=== PATIENT | female | born 1990 | race Caucasian/White ===

== ENCOUNTER 2017-02-21 13:05 | Inpatient (IN) | payer SELFPAY ==
[~2017-02-21] VITALS: Ht 165.1 cm; Wt 80.2 kg
[~2017-02-21 13:05] MED LIST: ALBU8.5H3 IH; AMOX1TAB61 PO; CARB200T4 PO; CETI10TA24 PO; CETI10TA32 PO; DEXT10TA7 PO; FLUT100B INH; GUAI600T22 PO; LEVO25TA4 PO; LEVO50TA5 PO; LORA10TA75 PO; NORE-40 PO; NORE-73 PO; OMEP-110 PO; PRAM0.752 PO; PRAM0.754 PO; PRAM1.5T5 PO; PRED10TA PO; TRAZ100T15 PO; VENL225T PO; VENL75CA6 PO; VENL75TA PO; VITA400C42 PO; epi-pen INJ
[2017-02-21] MEDS ORDERED: SODIUM CHLORIDE 0.9% 1,000ML IVBOLUS ONE ×2 (14:30→18:30)
[2017-02-21] MEDS ORDERED: ONDANSETRON 2MG/ML, 2ML IVPush ONE (14:30)
[2017-02-21] MEDS ORDERED: SODIUM CHLORIDE FLUSH 10ML SYR IVF ONE (14:30)
[2017-02-21] MEDS ORDERED: ONDANSETRON 2MG/ML, 2ML ONE (14:42)
[2017-02-21] MEDS ORDERED: methylPREDNISolone SOD SUCC 125 MG/2 ML ONE (14:42)
[2017-02-21 14:49] LABS: BLOOD UREA NITROGEN 12 mg/dL (7-18)
[2017-02-21 14:54] LABS: ASPARTATE AMINO TRANSFERASE 18 U/L (15-37)
[2017-02-21] MEDS ORDERED: methylPREDNISolone SOD SUCC 125 MG/2 ML IVPush ONE (15:00)
[2017-02-21] MEDS ORDERED: POLYETHYLENE GLYCOL 17 GM PACKET PO PRN (18:00)
[2017-02-21] MEDS ORDERED: BISACODYL 10 MG SUPP PR PRN ×2 (18:00→20:00)
[2017-02-21] MEDS ORDERED: DOCUSATE 100 MG CAPSULE PO PRN ×2 (18:00→19:30)
[2017-02-21] MEDS ORDERED: ONDANSETRON 2MG/ML, 2ML IVPush PRN (18:00)
[2017-02-21] MEDS ORDERED: PRAMIPEXOLE 0.25MG TABLET PO SCH (18:00)
[2017-02-21] MEDS ORDERED: PROMETHAZINE 25 MG/ML, 1ML IM PRN (18:00)
[2017-02-21 18:08] VITALS: BP 106/66
[2017-02-21] MEDS: SODIUM CHLORIDE 0.9% 1,000 ML IV SCH (18:31)
[2017-02-21 19:30] VITALS: BP 94/56
[2017-02-21] MEDS: CEFTRIAXONE PMX 1GM/50ML 50 ML IV SCH (20:51)
[2017-02-21] MEDS: CETIRIZINE 10 MG TABLET PO SCH (21:00)
[2017-02-21] MEDS: GUAIFENESIN ER 600 MG TABLET PO SCH (21:00)
[2017-02-21] MEDS: ENOXAPARIN 40 MG/0.4 ML SQ SCH (22:39)
[2017-02-21] MEDS: PRAMIPEXOLE 0.25MG TABLET PO SCH (22:40)
[2017-02-21] MEDS: VENLAFAXINE 75 MG CAP ER PO SCH (22:40)
[2017-02-21] MEDS: methylPREDNISolone SOD SUCC 125 MG/2 ML IVPush SCH (22:40)
[2017-02-21] MEDS: TRAZODONE 100MG TABLET PO SCH (22:40)
[2017-02-21] MEDS: CARBAMAZEPINE 200 MG TABLET PO SCH (22:40)
[2017-02-22 00:45] VITALS: BP 94/56
[2017-02-22] MEDS: ACETAMINOPHEN 325 MG TABLET PO PRN (01:13)
[2017-02-22] MEDS ORDERED: ALBUTEROL SULFATE 2.5 MG/3 ML NPPB PRN (04:00)
[2017-02-22] MEDS: methylPREDNISolone SOD SUCC 125 MG/2 ML IVPush SCH ×4 (04:11→21:37)
[2017-02-22] MEDS: SODIUM CHLORIDE 0.9% 1,000 ML IV SCH ×2 (05:36→11:48)
[2017-02-22 05:37] LABS: BLOOD UREA NITROGEN 14 mg/dL (7-18)
[2017-02-22 05:49] LABS: ASPARTATE AMINO TRANSFERASE 15 U/L (15-37)
[2017-02-22 06:46] VITALS: BP 90/52
[2017-02-22] MEDS: CARBAMAZEPINE 200 MG TABLET PO SCH ×3 (07:39→21:38)
[2017-02-22] MEDS: SENNA/DOCUSATE TABLET PO SCH (08:41)
[2017-02-22] MEDS: GUAIFENESIN ER 600 MG TABLET PO SCH ×3 (08:41→21:38)
[2017-02-22] MEDS: CETIRIZINE 10 MG TABLET PO SCH ×3 (08:42→21:38)
[2017-02-22] MEDS: FLUTICASONE FUROATE 100MCG/INH INH SCH (08:43)
[2017-02-22] MEDS: OMEPRAZOLE 20 MG CAPSULE.DR PO SCH (08:43)
[2017-02-22] MEDS: LEVOTHYROXINE 50 MCG TABLET PO SCH (08:43)
[2017-02-22 14:33] VITALS: BP 100/63
[2017-02-22] MEDS: PRAMIPEXOLE 0.25MG TABLET PO SCH (16:10)
[2017-02-22 19:10] VITALS: BP 108/66
[2017-02-22] MEDS ORDERED: PRAMIPEXOLE DI HCL 1.5 MG HOMEMEDPO SCH (21:00)
[2017-02-22] MEDS: CEFTRIAXONE PMX 1GM/50ML 50 ML IV SCH (21:36)
[2017-02-22] MEDS: TRAZODONE 100MG TABLET PO SCH (21:38)
[2017-02-22] MEDS: VENLAFAXINE 75 MG CAP ER PO SCH (21:38)
[2017-02-22] MEDS: PRAMIPEXOLE 0.5MG TABLET PO SCH (21:38)
[2017-02-22] MEDS: ENOXAPARIN 40 MG/0.4 ML SQ SCH (21:39)
[2017-02-23 01:00] VITALS: BP 99/59
[2017-02-23] MEDS: SODIUM CHLORIDE 0.9% 1,000 ML IV SCH ×2 (01:14→13:13)
[2017-02-23] MEDS: methylPREDNISolone SOD SUCC 125 MG/2 ML IVPush SCH ×2 (03:47→09:12)
[2017-02-23 05:44] LABS: BLOOD UREA NITROGEN 12 mg/dL (7-18)
[2017-02-23 07:15] VITALS: BP 112/67
[2017-02-23] MEDS: FLUTICASONE FUROATE 100MCG/INH INH SCH (09:00)
[2017-02-23] MEDS: CARBAMAZEPINE 200 MG TABLET PO SCH ×2 (09:12→21:23)
[2017-02-23] MEDS: OMEPRAZOLE 20 MG CAPSULE.DR PO SCH (09:12)
[2017-02-23] MEDS: CETIRIZINE 10 MG TABLET PO SCH ×2 (09:12→21:23)
[2017-02-23] MEDS: LEVOTHYROXINE 50 MCG TABLET PO SCH (09:12)
[2017-02-23] MEDS: GUAIFENESIN ER 600 MG TABLET PO SCH ×2 (09:12→21:23)
[2017-02-23] MEDS: SENNA/DOCUSATE TABLET PO SCH (09:17)
[2017-02-23] MEDS: POLYETHYLENE GLYCOL 17 GM PACKET PO PRN (09:17)
[2017-02-23 12:35] VITALS: BP 117/69
[2017-02-23] MEDS: DIPHENHYDRAMINE 25 MG CAPSULE PO PRN ×2 (17:48→22:36)
[2017-02-23] MEDS: ACETAMINOPHEN 325 MG TABLET PO PRN ×2 (17:48→22:36)
[2017-02-23 19:20] VITALS: BP 114/71
[2017-02-23] MEDS: CEFTRIAXONE PMX 1GM/50ML 50 ML IV SCH (21:22)
[2017-02-23] MEDS: VENLAFAXINE 75 MG CAP ER PO SCH (21:23)
[2017-02-23] MEDS: PRAMIPEXOLE 0.5MG TABLET PO SCH (21:23)
[2017-02-23] MEDS: ENOXAPARIN 40 MG/0.4 ML SQ SCH (22:00)
[2017-02-23] MEDS: TRAZODONE 100MG TABLET PO SCH (22:36)
[2017-02-24 01:00] VITALS: BP 111/71
[2017-02-24] MEDS: SODIUM CHLORIDE 0.9% 1,000 ML IV SCH (02:22)
[2017-02-24 07:34] VITALS: BP 121/79
[2017-02-24] MEDS: SENNA/DOCUSATE TABLET PO SCH (08:29)
[2017-02-24] MEDS: GUAIFENESIN ER 600 MG TABLET PO SCH (08:29)
[2017-02-24] MEDS: OMEPRAZOLE 20 MG CAPSULE.DR PO SCH (08:29)
[2017-02-24] MEDS: POLYETHYLENE GLYCOL 17 GM PACKET PO PRN (08:30)
[2017-02-24] MEDS: CARBAMAZEPINE 200 MG TABLET PO SCH (08:30)
[2017-02-24] MEDS: ACETAMINOPHEN 325 MG TABLET PO PRN (08:30)
[2017-02-24] MEDS: CETIRIZINE 10 MG TABLET PO SCH (08:30)
[2017-02-24] MEDS: DIPHENHYDRAMINE 25 MG CAPSULE PO PRN (08:30)
[2017-02-24] MEDS: LEVOTHYROXINE 50 MCG TABLET PO SCH (08:30)
[2017-02-24] MEDS: FLUTICASONE FUROATE 100MCG/INH INH SCH (08:38)
[2017-02-24] MEDS ORDERED: METH4TAB2 PO (09:11)
[2017-02-24] MEDS ORDERED: DIPH25CA61 PO (09:11)
[2017-02-24] MEDS ORDERED: ACET325T14 PO (09:11)
[2017-02-24] MEDS ORDERED: CETI10TA18 PO (09:11)
== END 2017-02-24 11:30 | disposition home or self-care (01) | DRG 596 ==
LOC: ED 14:48 → EDIP 16:03 → SUATTDRO 17:09 → 4EST 17:56 → DCLOUNGE 02-24 11:00
PROVIDERS: ADMIT Hospitalist; ATTEND Family Medicine
DX: L51.1 Stevens-Johnson syndrome (principal); N39.0 Urinary tract infection, site not specified; D80.3 Selective deficiency of immunoglobulin G [IgG] subclasses; J45.909 Unspecified asthma, uncomplicated; E03.9 Hypothyroidism, unspecified; G89.29 Other chronic pain; K21.9 Gastro-esophageal reflux disease without esophagitis; F32.9 Major depressive disorder, single episode, unspecified; G47.419 Narcolepsy without cataplexy; I95.9 Hypotension, unspecified; G25.81 Restless legs syndrome; T37.0X5A Adverse effect of sulfonamides, initial encounter; H10.9 Unspecified conjunctivitis; N83.209 Unspecified ovarian cyst, unspecified side; Z88.1 Allergy status to other antibiotic agents; Z88.5 Allergy status to narcotic agent; Z88.2 Allergy status to sulfonamides; Z88.8 Allergy status to other drugs, medicaments and biological substances; Z87.01 Personal history of pneumonia (recurrent); Z79.899 Other long term (current) drug therapy; Z82.5 Family history of asthma and other chronic lower respiratory diseases; Z91.018 Allergy to other foods; Z91.048 Other nonmedicinal substance allergy status; Z86.711 Personal history of pulmonary embolism; Z79.52 Long term (current) use of systemic steroids
CPT/HCPCS: 36415; 71010; 76770; 80048; 80053; 81001; 83605; 83735; 84100; 84145; 84443; 84703; 85025; 87040; 87086; 94640; 96374; 96375; J0696; J1650; J2405; J7613; J2930; J7030; J7512; Q0163

== ENCOUNTER 2017-05-16 13:00 | Emergency (ER) | payer OTHER ==
[~2017-05-16] VITALS: Ht 165.1 cm; Wt 81.1 kg
[~2017-05-16 13:00] MED LIST changes: +ACET325T14 PO; -ALBU8.5H3 IH; +ALBU8.5H8 IH; +CETI10TA18 PO; +DIPH25CA61 PO; -GUAI600T22 PO; +GUAI600T31 PO; +METH4TAB2 PO
[2017-05-16] MEDS ORDERED: PROPARACAINE OPHTH 0.5%, 15ML ONE (13:24)
[2017-05-16] MEDS ORDERED: FLUORESCEIN OPHTHALMIC 1 MG STRIP ONE (13:24)
[2017-05-16] MEDS ORDERED: FLUORESCEIN OPHTHALMIC 1 MG STRIP EACHEYE ONE (13:30)
[2017-05-16] MEDS ORDERED: PROPARACAINE OPHTH 0.5%, 15ML EACHEYE ONE (13:30)
[2017-05-16 14:05] VITALS: BP 116/74
== END 2017-05-16 14:07 | disposition home or self-care (01) ==
LOC: ED 14:05
DX: B30.9 Viral conjunctivitis, unspecified (principal); E03.9 Hypothyroidism, unspecified; I10 Essential (primary) hypertension
CPT/HCPCS: 81001; 87086; 87147; 99284

== ENCOUNTER 2017-12-21 21:05 | Emergency (ER) | payer OTHER ==
[~2017-12-21] VITALS: Ht 165.1 cm; Wt 86.0 kg
[2017-12-21 21:12] VITALS: BP 126/71
[2017-12-21] MEDS: KETOROLAC 30 MG/1 ML IM ONE ×2 (22:30→23:35)
[2017-12-21] MEDS ORDERED: KETOROLAC 30 MG/1 ML ONE (23:29)
== END 2017-12-22 01:18 | disposition home or self-care (01) ==
LOC: ED 23:59
DX: J20.8 Acute bronchitis due to other specified organisms (principal); J06.9 Acute upper respiratory infection, unspecified; R06.00 Dyspnea, unspecified; E03.9 Hypothyroidism, unspecified; G89.29 Other chronic pain; J45.909 Unspecified asthma, uncomplicated
CPT/HCPCS: 71046; 93005; 96372; 99284; J1885; J7512

== ENCOUNTER 2019-10-20 10:25 | Outpatient (CLI) | payer OTHER ==
[~2019-10-20 10:25] MED LIST changes: -CETI10TA24 PO; +CETI10TA26 PO; +TRAZ-175 PO; -TRAZ100T15 PO; +VITA-74 PO; -VITA400C42 PO
[2019-10-20 10:58] LABS: BASOPHILS # (AUTO) 0.05 x10^3/uL (0-0.1); BASOPHILS % (AUTO) 1 % (0-1); EOSINOPHILS # (AUTO) 0.09 x10^3/uL (0-0.4); EOSINOPHILS % (AUTO) 2 % (1-7); HCT (SEDRATE) 43.6 % (34.6-47.8); LYMPHOCYTES % (AUTO) 24 % (22-44); MD NO; MEAN CORPUSCULAR HEMOGLOBIN 30.2 pg (27.0-34.8); MEAN CORPUSCULAR HGB CONC 33.2 g/dL (32.4-35.8); MEAN CORPUSCULAR VOLUME 90.9 fL (80-100); MONOCYTES # (AUTO) 0.56 x10^3/uL (0.2-0.8); MONOCYTES % (AUTO) 10 % (2-9); NEUTROPHILS % (AUTO) 64 % (42-75); PLATELET COUNT 182 x10^3/uL (130-400); RED BLOOD COUNT 4.74 x10^6/uL (3.82-5.3); RED CELL DISTRIBUTION WIDTH 12.6 % (9.6-15.2)
[2019-10-20 11:04] LABS: ALBUMIN 3.9 g/dL (3.4-5.0); ANION GAP 7 mmol/L (5-15); C-REACTIVE PROTEIN, QUANT 0.22 mg/dL (0.02-0.49); CALCIUM 8.8 mg/dL (8.5-10.1); CHLORIDE 108 mmol/L (98-107); CHOLESTEROL, TOTAL 160 mg/dL (140-239); TRIGLYCERIDES 81 mg/dL (50-200); VLDL CHOLESTEROL 16 mg/dL (0-25)
[2019-10-20 11:30] LABS: ALANINE AMINOTRANSFERASE 20 U/L (12-78); ALKALINE PHOSPHATASE 73 U/L (45-117); BILIRUBIN,TOTAL 0.6 mg/dL (0.2-1.0); CHOL/HDL RATIO 2.9; CREATININE 0.93 mg/dL (0.55-1.02); FOLATE LEVEL 17.4 ng/mL (3.1-17.5); HDL CHOL % 35 % (28-40); HDL CHOLESTEROL (DIRECT) 56 mg/dL (40-60); LDL CHOLESTEROL,CALCULATED 88 mg/dL (54-169); LDL/HDL RATIO 1.6 (0.5-3.0); TOTAL PROTEIN 7.5 g/dL (6.4-8.2)
== END 2019-10-20 23:59 | disposition home or self-care (01) ==
LOC: LAB 10:25
PROVIDERS: ATTEND Family Medicine
DX: Z13.220 Encounter for screening for lipoid disorders (principal); Z13.29 Encounter for screening for other suspected endocrine disorder; E03.9 Hypothyroidism, unspecified; D84.9 Immunodeficiency, unspecified; R53.83 Other fatigue; M19.90 Unspecified osteoarthritis, unspecified site; G25.81 Restless legs syndrome
CPT/HCPCS: 36415; 80053; 80061; 81374; 82306; 82607; 82746; 82784; 84439; 84443; 84481; 85025; 85651; 86038; 86140; 86200; 86225; 86430

== ENCOUNTER 2019-10-30 11:37 | Emergency (ER) | payer OTHER ==
[~2019-10-30] VITALS: Ht 165.1 cm; Wt 87.8 kg
--- NOTE | 2019-10-30 12:50 | NUR ---
RADIOLOGY QUESTIONING PA & LATERAL ORDER. WILL CONSULT KORI LEON.
--- NOTE | 2019-10-30 12:57 | NUR ---
ISO CART AT [employer]WAY. PT WEARING SIMPLE FACE MASK.
[2019-10-30] MEDS ORDERED: ACETAMINOPHEN 500 MG TABLET ONE (12:59)
[2019-10-30] MEDS ORDERED: ACETAMINOPHEN 500 MG TABLET PO ONE (13:00)
[2019-10-30] MEDS ORDERED: SODIUM CHLORIDE FLUSH 10ML SYR IVF ONE (13:00)
[2019-10-30] MEDS ORDERED: SODIUM CHLORIDE 0.9% 1,000ML IVBOLUS ONE ×2 (13:00→16:30)
[2019-10-30] MEDS ORDERED: VITAMIN B COMPLEX (13:11)
[2019-10-30] MEDS ORDERED: VITAMIN E (13:11)
[2019-10-30] MEDS ORDERED: VITAMIN D3 (13:11)
--- NOTE | 2019-10-30 13:13 | NUR ---
COUGH X 4 DAYS, WORSENED LAST NOC, + FEVER. NO MEDS TAKEN TODAY FOR SX. NO RECENT TRAVEL OUTSIDE [place], DENIES CONTACT W/ PERSON W/ FLU-LIKE SX.
[2019-10-30 13:19] LABS: BASOPHILS % (AUTO) 0 % (0-1); EOSINOPHILS % (AUTO) 0 % (1-7); LYMPHOCYTES # (AUTO) 0.21 x10^3/uL (1-3.4); LYMPHOCYTES % (AUTO) 4 % (22-44); MD NO; MEAN CORPUSCULAR HEMOGLOBIN 30.7 pg (27.0-34.8); MEAN CORPUSCULAR HGB CONC 33.9 g/dL (32.4-35.8); MEAN CORPUSCULAR VOLUME 90.3 fL (80-100); MEAN PLATELET VOLUME 10.1 fL (7.4-10.4); MONOCYTES # (AUTO) 0.48 x10^3/uL (0.2-0.8); MONOCYTES % (AUTO) 10 % (2-9); NEUTROPHILS # (AUTO) 4.32 x10^3/uL (1.8-6.8); NEUTROPHILS % (AUTO) 86 % (42-75); PLATELET COUNT 152 x10^3/uL (130-400); RED BLOOD COUNT 4.31 x10^6/uL (3.82-5.3)
--- NOTE | 2019-10-30 13:20 | NUR ---
TYLENOL GIVEN PER EMAR. PT TO RADIOLOGY PER NICOLE.
[2019-10-30 13:24] LABS: ALBUMIN 3.7 g/dL (3.4-5.0); ANION GAP 8 mmol/L (5-15); CALCIUM 8.4 mg/dL (8.5-10.1); CHLORIDE 108 mmol/L (98-107); CREATININE 1.07 mg/dL (0.55-1.02)
[2019-10-30 13:27] LABS: RAPID INFLUENZA A Negative (Negative); RAPID INFLUENZA B Negative (Negative)
--- NOTE | 2019-10-30 14:58 | NUR ---
PT REPORT TO ARMINDA MENDEZ. PT CARE TRANSFERRED.
--- NOTE | 2019-10-30 16:24 | NUR ---
SECOND LITER OF FLUIDS INFUSING. PT CONTINUES TO HAVE OCCASIONAL COUGH. PT ATE LUNCH BROUGHT BY MOTHER AND NOW WATCHING TV
--- NOTE | 2019-10-30 17:25 | NUR ---
EXAM BY WITH COVID 19 SPECIMEN OBTAINED
[2019-10-30 17:40] VITALS: BP 116/66
== END 2019-10-31 02:17 ==
LOC: ED 19:08
DX: B34.9 Viral infection, unspecified (principal); Z20.828 Contact with and (suspected) exposure to other viral communicable diseases; R00.0 Tachycardia, unspecified
CPT/HCPCS: 36415; 71046; 80048; 82040; 83605; 85025; 87040; 87081; 87400; 87486; 87581; 87633; 87798; 87880; 93005; 99285; J7030

== ENCOUNTER 2019-11-02 13:52 | Emergency (ER) | payer OTHER ==
[~2019-11-02] VITALS: Ht 165.1 cm; Wt 86.2 kg
[~2019-11-02 13:52] MED LIST changes: +VITAMIN B COMPLEX; +VITAMIN D3; +VITAMIN E
--- NOTE | 2019-11-02 14:32 | NUR ---
PT BROUGTH BACK FORM TRIAGE WITH CHIEF COMPLAINT OF WORSENIGN COUGH SINCE WEDNESDAY. HERE IN ED ON 10/29 +FLU A, SYMPTOMS WORSE, HOME PULSE OX 89-93%, N/V 10/31. NEGATIVE COVID 19 TEST DONE ON 10/29. CONTINUES TO HAVE FEVER. PT ALERT, ORIENTED, ABLE TO SPEAK FULL SENTANCES. PPE IN PLACE.
[2019-11-02] MEDS ORDERED: SODIUM CHLORIDE FLUSH 10ML SYR IVF ONE (15:00)
--- NOTE | 2019-11-02 15:06 | NUR ---
ERMD AT BEDSIDE FOR EVALUATION
[2019-11-02 15:24] LABS: BASOPHILS # (AUTO) 0.01 x10^3/uL (0-0.1); BASOPHILS % (AUTO) 0 % (0-1); EOSINOPHILS # (AUTO) 0.01 x10^3/uL (0-0.4); EOSINOPHILS % (AUTO) 0 % (1-7); LYMPHOCYTES # (AUTO) 1.28 x10^3/uL (1-3.4); LYMPHOCYTES % (AUTO) 25 % (22-44); MD NO; MEAN CORPUSCULAR HEMOGLOBIN 30.3 pg (27.0-34.8); MEAN CORPUSCULAR HGB CONC 33.9 g/dL (32.4-35.8); MEAN CORPUSCULAR VOLUME 89.3 fL (80-100); MEAN PLATELET VOLUME 10.6 fL (7.4-10.4); MONOCYTES # (AUTO) 0.63 x10^3/uL (0.2-0.8); MONOCYTES % (AUTO) 12 % (2-9); NEUTROPHILS # (AUTO) 3.13 x10^3/uL (1.8-6.8); NEUTROPHILS % (AUTO) 62 % (42-75); PLATELET COUNT 125 x10^3/uL (130-400); RED BLOOD COUNT 4.53 x10^6/uL (3.82-5.3); RED CELL DISTRIBUTION WIDTH 12.8 % (9.6-15.2)
[2019-11-02 15:31] LABS: ALANINE AMINOTRANSFERASE 19 U/L (12-78); ALBUMIN 3.4 g/dL (3.4-5.0); ANION GAP 8 mmol/L (5-15); CALCIUM 8.5 mg/dL (8.5-10.1); CHLORIDE 107 mmol/L (98-107); CREATININE 0.84 mg/dL (0.55-1.02)
[2019-11-02 15:35] LABS: ALKALINE PHOSPHATASE 43 U/L (45-117); BILIRUBIN,TOTAL 0.5 mg/dL (0.2-1.0); TOTAL PROTEIN 7.1 g/dL (6.4-8.2); TROPONIN I < 0.015 ng/mL (0.000-0.045)
--- NOTE | 2019-11-02 15:47 | NUR ---
PT TO IMAGING
[2019-11-02] MEDS ORDERED: OMNIPAQUE 350 MG/ML, 100ML BOTTLE ONE (17:09)
[2019-11-02 18:38] VITALS: BP 114/80
== END 2019-11-02 18:42 | disposition home or self-care (01) ==
LOC: ED 16:55
DX: J10.1 Influenza due to other identified influenza virus with other respiratory manifestations (principal); R06.00 Dyspnea, unspecified; E03.9 Hypothyroidism, unspecified
CPT/HCPCS: 36415; 71275; 80053; 83605; 83880; 84484; 85025; 93005; 99285; Q9967

== ENCOUNTER → 2020-08-22 | Outpatient (CLI) | payer OTHER ==
[~2020-08-22] MED LIST changes: -CETI10TA26 PO; +CETI10TA76 PO; -PRAM0.754 PO; +PRAM0.755 PO; -PRAM1.5T5 PO; +PRAM1.5T6 PO
[2020-08-22 11:18] LABS: BASOPHILS % (AUTO) 1 % (0-1); EOSINOPHILS % (AUTO) 0 % (1-7); LYMPHOCYTES % (AUTO) 27 % (22-44); MD NO; MEAN CORPUSCULAR HEMOGLOBIN 30.9 pg (27.0-34.8); MEAN CORPUSCULAR HGB CONC 33.6 g/dL (32.4-35.8); MEAN PLATELET VOLUME 9.3 fL (7.4-10.4); MONOCYTES % (AUTO) 11 % (2-9); NEUTROPHILS % (AUTO) 62 % (42-75); PLATELET COUNT 173 x10^3/uL (130-400); RED BLOOD COUNT 4.63 x10^6/uL (3.82-5.3); RED CELL DISTRIBUTION WIDTH 12.8 % (9.6-15.2)
[2020-08-22 11:27] LABS: ALANINE AMINOTRANSFERASE 20 U/L (12-78); ALBUMIN 3.8 g/dL (3.4-5.0); ANION GAP 6 mmol/L (5-15); C-REACTIVE PROTEIN, QUANT 0.07 mg/dL (0.02-0.49); CALCIUM 8.8 mg/dL (8.5-10.1); CHLORIDE 107 mmol/L (98-107); CHOLESTEROL, TOTAL 182 mg/dL (140-239); TRIGLYCERIDES 53 mg/dL (50-200); VLDL CHOLESTEROL 11 mg/dL (0-25)
[2020-08-22 11:37] LABS: ALKALINE PHOSPHATASE 53 U/L (45-117); BILIRUBIN,TOTAL 0.7 mg/dL (0.2-1.0); CHOL/HDL RATIO 2.5; HDL CHOL % 41 % (28-40); HDL CHOLESTEROL (DIRECT) 74 mg/dL (40-60); LDL CHOLESTEROL,CALCULATED 97 mg/dL (54-169); LDL/HDL RATIO 1.3 (0.5-3.0)
[2020-08-22 12:29] LABS: HCT (SEDRATE) 42.7 % (34.6-47.8)
== END | disposition home or self-care (01) ==
LOC: LAB 11:00
PROVIDERS: ATTEND Family Medicine
DX: Z13.1 Encounter for screening for diabetes mellitus (principal); Z13.220 Encounter for screening for lipoid disorders; M19.90 Unspecified osteoarthritis, unspecified site; M54.5 Low back pain; E55.9 Vitamin D deficiency, unspecified; E03.9 Hypothyroidism, unspecified
CPT/HCPCS: 36415; 80053; 80061; 82306; 84443; 85025; 85651; 86140

== ENCOUNTER → 2021-03-28 | Outpatient (CLI) | payer OTHER | END | disposition home or self-care (01) | LOC: LAB 11:06 | PROVIDERS: ATTEND Family Medicine | DX: E66.9 Obesity, unspecified (principal) | CPT/HCPCS: 36415; 86609 ==